=== PATIENT | female | born 1965 | race Two or more races ===

== ENCOUNTER → 2023-02-22 06:34 | Outpatient (CLI) | payer OTHER ==
[2023-02-22 08:04] LABS: URINE APPEARANCE Clear; URINE BILIRRUBIN Negative (NEGATIVE); URINE COLOR Yellow; URINE GLUCOSE Negative (NEGATIVE); URINE LEUKOCYTE Moderate; URINE NITRATE Negative; URINE PROTEIN Negative (NEGATIVE); URINE UROBILINOGEN 0.2 E.U./dl
[2023-02-22 08:08] LABS: URINE EPITHELIAL CELLS 15.7 uL (0.0-38.8); URINE RBC 9.6 uL (0.0-20.8); URINE WBC 32.4 uL (0.0-23.2)
[2023-02-22 08:53] LABS: URINE BLOOD TRACES
== END | disposition home or self-care (01) ==
LOC: LAB 06:34
DX: E78.2 Mixed hyperlipidemia (principal); I11.9 Hypertensive heart disease without heart failure; E55.9 Vitamin D deficiency, unspecified; N39.0 Urinary tract infection, site not specified

== ENCOUNTER 2023-03-06 08:35 | Outpatient (CLI) | payer OTHER | END 2023-03-06 08:46 | disposition home or self-care (01) | LOC: MAMO-SONO 08:35 | DX: Z12.31 Encounter for screening mammogram for malignant neoplasm of breast (principal); Z80.3 Family history of malignant neoplasm of breast ==

== ENCOUNTER 2023-03-06 09:37 | Outpatient (CLI) | payer OTHER | END 2023-03-06 09:38 | disposition home or self-care (01) | LOC: LAB 09:37 | DX: R30.0 Dysuria (principal) ==

== ENCOUNTER 2023-05-12 06:55 | Outpatient (CLI) | payer OTHER ==
[2023-05-12 07:35] LABS: HEMATOCRIT 40.9 % (36.0-45.00); HEMOGLOBIN 14.3 g/dL (12.0-15.00); MEAN CORPUSCULAR HGB CONC 34.8 g/dl (32.0-36.0); PLATELET COUNT 237 K/uL (150-450); RED CELL DISTRIBUTION WIDTH 13.2 % (11.5-14.5)
[2023-05-12 07:40] LABS: PH,URINE 5.5 (5.0-8.0); URINE APPEARANCE Cloudy; URINE BILIRRUBIN Negative (NEGATIVE); URINE BLOOD Small; URINE COLOR Dark Yellow; URINE GLUCOSE Negative (NEGATIVE); URINE LEUKOCYTE Negative; URINE NITRATE Negative; URINE PROTEIN Trace (NEGATIVE)
[2023-05-12 07:44] LABS: URINE EPITHELIAL CELLS 56.8 uL (0.0-38.8); URINE RBC 26.1 uL (0.0-20.8); URINE WBC 13.9 uL (0.0-23.2)
[2023-05-12 07:54] LABS: ALBUMIN 3.9 gm/dL (3.4-5.0); BILIRUBIN TOTAL 0.63 mg/dL (0.3-1.2); CALCIUM 9.4 mg/dL (8.5-10.1); CHOL HDL RATIO 3.5 (0-5.0); CREATININE SERUM 0.9 mg/dL (0.55-1.02); GFR 64.09; GLOBULINA 3.7 G/DL (2.4-3.5); POTASSIUM 3.91 mEq/L (3.5-5.1); TOTAL PROTEIN 7.6 gm/dL (6.4-8.2)
== END 2023-05-12 06:56 | disposition home or self-care (01) ==
LOC: LAB 06:55
PROVIDERS: ATTEND Internal Medicine
DX: E11.65 Type 2 diabetes mellitus with hyperglycemia (principal); E78.2 Mixed hyperlipidemia; I11.9 Hypertensive heart disease without heart failure; E55.9 Vitamin D deficiency, unspecified; N39.0 Urinary tract infection, site not specified; Z13.29 Encounter for screening for other suspected endocrine disorder; Z12.11 Encounter for screening for malignant neoplasm of colon; Z12.39 Encounter for other screening for malignant neoplasm of breast

== ENCOUNTER 2023-05-18 07:06 | Outpatient (CLI) | payer OTHER ==
[2023-05-18 08:12] LABS: ob NEGATIVE (NEGATIVE)
[2023-05-18 09:05] LABS: URINE PROT QUANT 24HR 5.4 MG/DL
[2023-05-18 09:20] LABS: URINE PROT QUANT 24 HR 132.3 MG/24HR (42-225)
== END 2023-05-18 07:07 | disposition home or self-care (01) ==
LOC: LAB 07:06
PROVIDERS: ATTEND Internal Medicine
DX: E11.65 Type 2 diabetes mellitus with hyperglycemia (principal); E78.2 Mixed hyperlipidemia; I11.9 Hypertensive heart disease without heart failure; E55.9 Vitamin D deficiency, unspecified; N39.0 Urinary tract infection, site not specified; Z13.29 Encounter for screening for other suspected endocrine disorder; Z12.11 Encounter for screening for malignant neoplasm of colon; Z12.39 Encounter for other screening for malignant neoplasm of breast

== ENCOUNTER 2023-12-06 06:30 | Outpatient (CLI) | payer OTHER ==
[2023-12-06 07:35] LABS: BILIRUBIN TOTAL 0.73 mg/dL (0.3-1.2); CALCIUM 9.1 mg/dL (8.5-10.1); CREATININE SERUM 0.71 mg/dL (0.55-1.02); GFR 84.26; GLOBULINA 3.6 G/DL (2.4-3.5); POTASSIUM 3.73 mEq/L (3.5-5.1); TOTAL PROTEIN 7.6 gm/dL (6.4-8.2)
== END 2023-12-06 06:31 | disposition home or self-care (01) ==
LOC: LAB 06:30
PROVIDERS: ATTEND Internal Medicine
DX: T38.3X5A Adverse effect of insulin and oral hypoglycemic [antidiabetic] drugs, initial encounter (principal); R80.1 Persistent proteinuria, unspecified; E11.65 Type 2 diabetes mellitus with hyperglycemia; E78.2 Mixed hyperlipidemia; I11.9 Hypertensive heart disease without heart failure; E55.9 Vitamin D deficiency, unspecified; N39.0 Urinary tract infection, site not specified; L30.9 Dermatitis, unspecified; Z13.29 Encounter for screening for other suspected endocrine disorder; Z12.11 Encounter for screening for malignant neoplasm of colon; Z12.39 Encounter for other screening for malignant neoplasm of breast

== ENCOUNTER → 2024-01-24 | Emergency (ER) | payer OTHER ==
[~2024-01-24] VITALS: Ht 170.2 cm; Wt 71.2 kg
[~2024-01-24] MED LIST: METFORMIN HCL500 M3 PO
== END | disposition home or self-care (01) ==
LOC: ER 01:02
DX: Z53.21 Procedure and treatment not carried out due to patient leaving prior to being seen by health care provider (principal)

== ENCOUNTER → 2024-03-11 | Outpatient (CLI) | payer OTHER ==
[2024-03-11 08:20] LABS: ALBUMIN 3.9 gm/dL (3.4-5.0); BILIRUBIN TOTAL 0.54 mg/dL (0.3-1.2); CALCIUM 9.4 mg/dL (8.5-10.1); CHOL HDL RATIO 3.5 (0-5.0); CREATININE SERUM 0.77 mg/dL (0.55-1.02); GFR 76.46; GLOBULINA 3.5 G/DL (2.4-3.5); POTASSIUM 4.19 mEq/L (3.5-5.1); TOTAL PROTEIN 7.4 gm/dL (6.4-8.2)
== END | disposition home or self-care (01) ==
LOC: LAB 06:21
PROVIDERS: ATTEND Internal Medicine
DX: E55.9 Vitamin D deficiency, unspecified (principal); N39.0 Urinary tract infection, site not specified; L30.9 Dermatitis, unspecified; Z13.29 Encounter for screening for other suspected endocrine disorder; Z12.11 Encounter for screening for malignant neoplasm of colon; Z12.39 Encounter for other screening for malignant neoplasm of breast; E11.65 Type 2 diabetes mellitus with hyperglycemia; E78.2 Mixed hyperlipidemia; I11.9 Hypertensive heart disease without heart failure; M81.0 Age-related osteoporosis without current pathological fracture; R80.1 Persistent proteinuria, unspecified; T38.3X5A Adverse effect of insulin and oral hypoglycemic [antidiabetic] drugs, initial encounter

== ENCOUNTER 2024-04-17 11:29 | Outpatient (CLI) | payer OTHER | END 2024-04-17 11:36 | disposition home or self-care (01) | LOC: MAMO-SONO 11:29 | PROVIDERS: ATTEND Internal Medicine | DX: Z12.11 Encounter for screening for malignant neoplasm of colon (principal); Z12.39 Encounter for other screening for malignant neoplasm of breast; Z13.29 Encounter for screening for other suspected endocrine disorder; E55.9 Vitamin D deficiency, unspecified; N39.0 Urinary tract infection, site not specified; L30.9 Dermatitis, unspecified; E11.65 Type 2 diabetes mellitus with hyperglycemia; E78.2 Mixed hyperlipidemia; I11.9 Hypertensive heart disease without heart failure; M81.0 Age-related osteoporosis without current pathological fracture; R80.1 Persistent proteinuria, unspecified; T38.3X5A Adverse effect of insulin and oral hypoglycemic [antidiabetic] drugs, initial encounter; G56.00 Carpal tunnel syndrome, unspecified upper limb ==

== ENCOUNTER → 2024-05-03 08:44 | Outpatient (CLI) | payer OTHER | END | disposition home or self-care (01) | LOC: NUCLEAR 08:44 | PROVIDERS: ATTEND Internal Medicine | DX: M81.0 Age-related osteoporosis without current pathological fracture (principal) ==

== ENCOUNTER 2024-06-06 06:30 | Outpatient (CLI) | payer OTHER ==
[2024-06-06 07:29] LABS: HEMATOCRIT 42.8 % (36.0-45.00); HEMOGLOBIN 14.4 g/dL (12.0-15.00); MEAN CELL VOLUME 88.9 fL (80.00-100.00); MEAN CORPUSCULAR HEMOGLOBIN 29.8 pg (27.00-32.0); MEAN CORPUSCULAR HGB CONC 33.5 g/dl (32.0-36.0); PLATELET COUNT 244 K/uL (150-450); RED BLOOD COUNT 4.82 M/uL (4.00-6.00); RED CELL DISTRIBUTION WIDTH 13.3 % (11.5-14.5)
[2024-06-06 08:17] LABS: BILIRUBIN TOTAL 0.65 mg/dL (0.3-1.2); CALCIUM 9.4 mg/dL (8.5-10.1); CHOL HDL RATIO 3.6 (0-5.0); CREATININE SERUM 0.75 mg/dL (0.55-1.02); GFR 78.82; GLOBULINA 3.5 G/DL (2.4-3.5); POTASSIUM 3.98 mEq/L (3.5-5.1); T4 TOTAL 10.61 UG/DL (4.8-13.9); TOTAL PROTEIN 7.5 gm/dL (6.4-8.2); TSH 1.27 uIU/mL (0.358-3.74)
[2024-06-06 09:41] LABS: ob NEGATIVE (NEGATIVE)
[2024-06-06 10:16] LABS: T3 TOTAL 1.32 ng/ml (0.846-2.02); VITAMIN D3 25 HYDROXY 41.97 ng/ml (30-120)
== END 2024-06-06 06:31 | disposition home or self-care (01) ==
LOC: LAB 06:30
PROVIDERS: ATTEND Internal Medicine
DX: R80.1 Persistent proteinuria, unspecified (principal); M81.0 Age-related osteoporosis without current pathological fracture; E11.65 Type 2 diabetes mellitus with hyperglycemia; E78.2 Mixed hyperlipidemia; I11.9 Hypertensive heart disease without heart failure; E55.9 Vitamin D deficiency, unspecified; N39.0 Urinary tract infection, site not specified; L30.9 Dermatitis, unspecified; Z13.29 Encounter for screening for other suspected endocrine disorder; Z12.11 Encounter for screening for malignant neoplasm of colon

== ENCOUNTER → 2024-06-28 10:35 | Outpatient (CLI) | payer OTHER | END | disposition home or self-care (01) | LOC: LAB 10:35 | DX: R30.0 Dysuria (principal) ==

== ENCOUNTER 2024-09-27 06:10 | Outpatient (CLI) | payer OTHER ==
[2024-09-27 08:22] LABS: CHOL HDL RATIO 3.8 (0-5.0)
== END 2024-09-27 06:17 | disposition home or self-care (01) ==
LOC: LAB 06:10
DX: E78.2 Mixed hyperlipidemia (principal); E11.65 Type 2 diabetes mellitus with hyperglycemia; R80.1 Persistent proteinuria, unspecified; M81.0 Age-related osteoporosis without current pathological fracture; I11.9 Hypertensive heart disease without heart failure; E55.9 Vitamin D deficiency, unspecified; N39.0 Urinary tract infection, site not specified; L30.9 Dermatitis, unspecified; Z12.11 Encounter for screening for malignant neoplasm of colon; Z12.39 Encounter for other screening for malignant neoplasm of breast

== ENCOUNTER → 2025-01-28 06:26 | Outpatient (CLI) | payer OTHER ==
[2025-01-28 07:58] LABS: ALT/SGPT 27.0 U/L (12-78); AST/SGOT 20.0 U/L (15-37); BILIRUBIN TOTAL 0.66 mg/dL (0.3-1.2); BUN CREA RATIO 21.0 (7.0-25.0); CHOL HDL RATIO 3.3 (0-5.0); CREATININE SERUM 0.73 mg/dL (0.55-1.02); GFR 81.05; GLOBULINA 3.6 G/DL (2.4-3.5); GLUCOSE FASTING 150.0 mg/dL (65-100); HDL 64.0 mg/dl (40-60); LDL 103.0 mg/dl (0-130); OSMOLALITY SERUM 285.0 MOSM/KG (275-295); VLDL 45.0 (0-39)
== END | disposition home or self-care (01) ==
LOC: LAB 06:26
DX: E11.65 Type 2 diabetes mellitus with hyperglycemia (principal); M81.0 Age-related osteoporosis without current pathological fracture; T38.3X5A Adverse effect of insulin and oral hypoglycemic [antidiabetic] drugs, initial encounter; R80.1 Persistent proteinuria, unspecified; E78.2 Mixed hyperlipidemia; I11.9 Hypertensive heart disease without heart failure; E55.9 Vitamin D deficiency, unspecified; L30.9 Dermatitis, unspecified; Z13.29 Encounter for screening for other suspected endocrine disorder; Z12.11 Encounter for screening for malignant neoplasm of colon; Z12.39 Encounter for other screening for malignant neoplasm of breast